=== PATIENT | male | born 1945 | race African-American/Black ===

== ENCOUNTER 2019-10-14 13:23 | Emergency (ER) | payer MEDICARE, OTHER ==
[~2019-10-14] VITALS: Ht 172.7 cm; Wt 55.9 kg
[2019-10-14 14:42] VITALS: BP 140/63
[2019-10-14] MEDS ORDERED: OXYMETAZOLINE 0.05% NASAL SPRAY 30ML BOTTLE. NS ONE (15:30)
--- NOTE | 2019-10-14 16:04 | PHYS DOC ---
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 Nasal packing was placed in the right Nare. Patient is here today for removal of packing. Patient did not follow-up with an ENT or his primary care. Review of Systems Review of Systems HENT: Denies nasal congestion or sore throat. removal of nasal packing. [] All other systems were reviewed and found to be within normal limits, except as documented in this note. Current Medications Current Medications Current Medications Medications (Trade) Dose Ordered Sig/Papo Start Time Stop Time Status Last Admin Dose Admin Oxymetazoline HCl (Afrin) 2 spray 1X ONCE 10/14/19 15:30 10/14/19 15:31 DC 10/14/19 15:42 2 SPRAY Allergies Allergies Allergies Coded Allergies Type Severity Reaction Last Updated Verified No Known Drug Allergies 10/14/19 No Physical Exam Physical Exam Constitutional: Well developed, well nourished, no acute distress, non-toxic appearance. [] HENT: Normocephalic, atraumatic, bilateral external ears normal, oropharynx moist, no oral exudates, nose normal. Nasal packing in place in right nare. [] Eyes: PERRLA, EOMI, conjunctiva normal, no discharge. [] Neck: Normal range of motion, no tenderness, supple, no stridor. [] Cardiovascular:Heart rate regular rhythm, no murmur [] Lungs & Thorax: Bilateral breath sounds clear to auscultation [] Abdomen: Bowel sounds normal, soft, no tenderness, no masses, no pulsatile masses. [] Skin: Warm, dry, no erythema, no rash. [] Back: No tenderness, no CVA tenderness. [] Extremities: No tenderness, no cyanosis, no clubbing, ROM intact, no edema. [] Neurologic: Alert and oriented X 3, normal motor function, normal sensory function, no focal deficits noted. [] Psychologic: Affect normal, judgement normal, mood normal. [] Current Patient Data Vital Signs Vital Signs Date Time Temp Pulse Resp B/P (MAP) Pulse Ox O2 Delivery O2 Flow Rate FiO2 10/14/19 14:42 98.8 81 14 140/63 (88) 99 Room Air 98.8 EKG EKG [] Radiology/Procedures Radiology/Procedures [] Course & Med Decision Making Course & Med Decision Making Pertinent Labs and Imaging studies reviewed. (See chart for details) Patient had a Rhino Rocket placed Thursday here in the ED for nosebleed. Patient was posted in 3 days and follow-up with ENT or his primary care or the emergency room to have removed. Alert and oriented. Skin pink warm and dry. Nasal packing is deflated with a 12cc syringe. Afrin sprayed up the right Nare and normal saline 2 soaked into the nasal packing for easy removal. After 5 minutes of soaking there was no bleeding and nasal packing was removed. After waiting another 5 minutes after removal bleeding did not restart. Did talk to Dr. Mckenna Humphreys ENT about the patient and she stated as long as it did not start bleeding again and a packing not need to be replaced patient was good to go home and follow up with primary care if needed. She stated if the packing and replaced to place the patient on an antibiotic. Since the packing was not replaced antibiotic was prescribed. [] Dragon Disclaimer Dragon Disclaimer This electronic medical record was generated, in whole or in part, using a voice recognition dictation system. Departure Departure Impression: Primary Impression: Encounter for removal of nasal packing Disposition: 01 HOME, SELF-CARE Condition: STABLE Referrals: ROMI DEL CID (PCP) Patient Instructions: Medical Screening Exam Additional Instructions: Follow up with primary care physician if needed. Don not blow your nose. MIGUELITO CANALES APRN Oct 14, 2019 16:04
== END 2019-10-14 16:25 | disposition home or self-care (01) ==
LOC: ER 13:23
DX: R04.0 Epistaxis (principal); I10 Essential (primary) hypertension; F17.200 Nicotine dependence, unspecified, uncomplicated; F10.10 Alcohol abuse, uncomplicated; N19 Unspecified kidney failure; Z98.890 Other specified postprocedural states
CPT/HCPCS: 99284